=== PATIENT | male | born 1965 | race African-American/Black ===

== ENCOUNTER 2018-09-17 18:08 | Emergency (ER) | payer MEDICAID ==
[~2018-09-17] VITALS: Ht 185.4 cm; Wt 59.9 kg
--- NOTE | 2018-09-17 18:19 | NUR ---
BIBRA 858 FROM HOME C/O WORSENING LEFT LOWER BACK PAIN RADIATES TO LEFT LOWER EXTREMITY X 3 DAYS, HX OF SCIATICA. STATES PAIN LEVEL 10/10, BUT DOESN'T CARE BECAUSE HE "HASN'T SLEPT FOR 72 HOURS". PT IS AOX4, AMB, VSS, RR EVEN AND UNLABORED. NO ACUTE DISTRESS NOTED. READY FOR EVAL.
[2018-09-17] MEDS ORDERED: CYCLOBENZAPRINE 10 MG TABLET PO ONE (19:00)
[2018-09-17] MEDS ORDERED: GABAPENTIN 100 MG CAPSULE PO ONE (19:00)
[2018-09-17] MEDS ORDERED: GABAPENTIN 100 MG CAPSULE ONE (19:03)
[2018-09-17] MEDS ORDERED: CYCLOBENZAPRINE 10 MG TABLET ONE (19:03)
--- NOTE | 2018-09-17 19:50 | NUR ---
CALLED [facility] REQUESTING PT MEDICAL INFORMATION. FAXED OVER MEDICAL RELEASE AUTH.
[2018-09-17] MEDS ORDERED: KETOROLAC TROMETHAMINE INJ 30 MG/ML VIAL IM ONE (20:00)
[2018-09-17] MEDS ORDERED: oxyCODONE/APAP (5/325 MG) 1 UDTAB TABLET PO ONE (20:00)
[2018-09-17] MEDS ORDERED: oxyCODONE/APAP (5/325 MG) 1 UDTAB TABLET ONE (20:05)
[2018-09-17] MEDS ORDERED: KETOROLAC TROMETHAMINE INJ 30 MG/ML VIAL ONE (20:05)
--- NOTE | 2018-09-17 20:12 | NUR ---
PT SITTING COMFORTABLY IN BED WATCHING TV. NO COMPLAINTS AT THIS TIME. WILL CONT TO MONITOR.
--- NOTE | 2018-09-17 21:58 | NUR ---
Patient discharged to home in stable condition. Written and verbal after care instructions given. Patient verbalizes understanding of instruction.
[2018-09-17 21:59] VITALS: BP 114/81
== END 2018-09-17 22:00 | disposition home or self-care (01) ==
LOC: ER 18:13
DX: M54.42 Lumbago with sciatica, left side (principal); F12.10 Cannabis abuse, uncomplicated; F17.210 Nicotine dependence, cigarettes, uncomplicated; I10 Essential (primary) hypertension; Z60.2 Problems related to living alone; E11.9 Type 2 diabetes mellitus without complications
CPT/HCPCS: 82962-TC; J1885